=== PATIENT | female | born 1980 | race Caucasian/White ===

== ENCOUNTER 2023-07-16 11:15 | Outpatient (CLI) | payer OTHER, SELFPAY ==
--- NOTE | ~2023-07-16 | US_ITS ---
Pelvic ultrasound. Clinical History: Pelvic pain Technique: Realtime transabdominal and transvaginal scanning of the pelvis was performed. Color flow Doppler and Doppler spectral analysis were performed. Findings: The uterus is anteverted. The endometrial stripe has a thickness of 2 mm. IUD in satisfact ory position. No focal mass is identified. Large right adnexal cyst measures 7.9 x 6.2 x 6.2 cm, with a single thin septation. The left ovary measures 2.8 x 1.9 x 1.7 cm. No significant left ovarian or adnexal mass is seen. There is no evidence of free fluid in the cul de sac. Impression: 7.9 cm right ovarian cyst with single thin septation. IUD in place. Reviewed, dictated and finalized at [facility]. Impression: 7.9 cm right ovarian cyst with single thin septation. IUD in place.
== END 2023-07-16 11:16 ==
PROVIDERS: PCP Obstetrics & Gynecology; Visit Provider Obstetrics & Gynecology
DX: R10.31 Right lower quadrant pain (principal); Z97.5 Presence of (intrauterine) contraceptive device; N83.201 Unspecified ovarian cyst, right side
CPT/HCPCS: 76830; 76856

== ENCOUNTER 2023-07-20 10:32 | Outpatient (CLI) | payer OTHER, SELFPAY ==
[2023-07-21 12:29] LABS: CA-125 17 U/mL (<35)
== END 2023-07-20 10:33 | disposition home or self-care (01) ==
LOC: ANHLAB 10:33
PROVIDERS: Visit Provider Obstetrics & Gynecology
DX: N83.201 Unspecified ovarian cyst, right side (principal)
CPT/HCPCS: 36415; 82378; 86304